=== PATIENT | male | born 1965 | race Caucasian/White ===

== ENCOUNTER 2016-02-10 06:55 | Day surgery (SDC) | payer BC ==
[~2016-02-10] VITALS: Ht 193 cm; Wt 103.2 kg
[2016-02-10 07:43] LABS: BASOPHILS 0.4 % (0.0-2.0); EOSINOPHILS 6.4 % (0-7); HEMATOCRIT 44.8 % (42.0-54.0); HEMOGLOBIN 15.1 g/dL (13.5-17.5); LYMPHOCYTES 28.7 % (15-50); MCH 29.7 pg (26.0-34.0); MCHC 33.7 g/dL (31.0-37.0); MCV 88.2 fL (80.0-100.0); MONOCYTES 13.3 % (2-11); NEUTROPHILS 51.2 % (40-80); PLATELET COUNT 181 10x3/uL (130-400); RBC 5.08 10x6/uL (4.20-6.10); RDW 12.5 % (11.5-14.5)
[2016-02-10 08:03] LABS: CALCIUM 8.6 mg/dL (8.5-10.1); CARBON DIOXIDE 26.1 mmol/L (21.0-32.0); CREATININE - SERUM 1.2 mg/dL (0.6-1.3); POTASSIUM - SERUM 4.1 mmol/L (3.5-5.1)
[2016-02-10 08:26] VITALS: BP 106/68; Ht 193 cm; Wt 103.2 kg
--- NOTE | 2016-02-10 10:45 | NUR ---
PT SITTING UP WITH HOB ELEVATED, TOLERATING FULL LIQUIDS. PAIN MEDICATION GIVEN WILL REASSESS. NO C/O N/V. WILL MONITOR.
--- NOTE | 2016-02-10 11:05 | NUR ---
1100- IV D/C'D, PT TOLERATED. CATHETER INTACT 1105- UP OOB TO VOID WITHOUT DIFFICULTY
--- NOTE | 2016-04-05 10:17 | HP ---
PATIENT: MIN HERMOSILLO MEDICAL RECORD: [id number] ACCOUNT: [id number] LOCATION:D.OPS : 65 ADMISSION DATE: 02/10/16 HISTORY AND PHYSICAL EXAMINATION CHIEF COMPLAINT: Desires colonoscopy. HISTORY OF PRESENT ILLNESS: The patient had a good prep yesterday. He has a perianal skin tag that I am going to remove rather than perform a hemorrhoidal banding. It sounds like that the perianal skin tag causes irritation. It has been enlarging. It is pedunculated. The risks, possible complications and alternatives to colonoscopy and removal of perianal skin tag were explained to the patient. He elects to proceed. He has had no rectal bleeding. No abdominal pain. No abdominal tenderness. HOME MEDICINES: None. ALLERGIES: No known drug allergies. SOCIAL HISTORY: Nonsmoker. REVIEW OF SYSTEMS: No coronary artery disease or hypertension. No CVA or seizures. No diabetes or thyroid problems. PAST MEDICAL AND SURGICAL HISTORY: Multiple knee operations. The patient states he has had 14 knee operations, also history of testicular cancer at age 20. PHYSICAL EXAMINATION: GENERAL: The patient does not appear acutely ill. He does not appear chronically ill. VITAL SIGNS: Reviewed. HEAD: External ears appear normal. EYES: Extraocular movements are intact. NECK: Trachea is midline. CHEST: No intercostal retractions. PULMONARY: Nonlabored and no stridor. ABDOMEN: Nontender. EXTREMITIES: No peripheral cyanosis. INTEGUMENT: No rash. IMPRESSION: 1. Desires screening colonoscopy. 2. Perianal skin tag. PLAN: Will be colonoscopy. Removal of perianal skin tag. TRANSINT:[id number] Voice Confirmation ID: [id number] DOCUMENT ID: [id number] HISTORY AND PHYSICAL [id number] JAIMEEMIN BRIONES LOBITO JOY, KASEY MCKINNEY at 1017 CC: CONNER FARIAS DO [id number] DICTATION DATE: 02/10/1618 MARKET MAKER: 02/10/16 0948 [facility] 02/10/16 [id number] [place] [address]
--- NOTE | 2016-04-05 10:17 | OP ---
PATIENT NAME: MIN HERMOSILLO MEDICAL RECORD: [id number] :65 LOCATION:D.OPS ADMISSION DATE: SURGEON: FACUNDO JOY MD DATE OF OPERATION: 02/10/2016 PREOPERATIVE DIAGNOSES: 1. Desires screening colonoscopy. 2. Perianal skin tag. POSTOPERATIVE DIAGNOSES: 1. Desires screening colonoscopy. 2. Perianal skin tag. 3. One colon polyp. 4. Normal prostate examination. PROCEDURES: 1. Total colonoscopy to cecum. 2. Hot biopsy forceps polypectomy times 1. 3. Excision of perianal skin tag. SURGEON: Facundo Joy MD MACHINE CLEANER: None. BLOOD LOSS: Minimal. ANESTHESIA: IV sedation. COMPLICATIONS: None. The indication for the anesthesia staff being present during the procedure includes anxiety regarding the procedure as well as the need for additional anesthesia when the perianal skin tag is removed. OPERATIVE COURSE: The patient was conveyed to the endoscopy suite electively on 02/10/2016. IV sedation was induced by the anesthesia staff. The patient was placed in the Funez position. A digital rectal examination was performed. A colonoscope was inserted through the anus. It was easily advanced to the cecum. The prep was adequate. Upon withdrawal, I irrigated and aspirated extensively. The pullback was greater than a 14-minute pullback. A combination of direct imaging as well as narrow band imaging were utilized. One polyp which was an 8 mm sessile polyp was removed utilizing the hot biopsy forceps polypectomy technique. It was removed in its entirety. A retroflexed view was obtained in the rectum. Upon retroflexion, there was what appeared to be an anal papilla. This was actually the perianal skin tag that had been prolapsing in and out through the anus. The endoscope was withdrawn under direct vision. The perianal skin tag was infiltrated with local anesthetic. I then cauterized the base of the skin tag, excising it. It was sent to pathology as a single specimen. The patient was then conveyed to the post endoscopy recovery area. He will be dismissed home on a narcotic analgesic. I will see him in the office in 2-3 weeks. OPERATIVE REPORT [id number] MIN HERMOSILLO TRANSINT:[id number] Voice Confirmation ID: [id number] DOCUMENT ID: [id number] FACUNDO JOY MD at 1017 CC: CONNER FARIAS DO [id number] DICTATION DATE: 02/10/16 1036 BOX OFFICE MANAGER: 02/10/16 1050 [facility] 02/10/16 [facility] [address] [place] [address]
== END 2016-02-10 11:15 | disposition home or self-care (01) ==
LOC: D.OPS 06:55
PROVIDERS: Anesthesiology
DX: Z12.11 Encounter for screening for malignant neoplasm of colon (principal); K63.5 Polyp of colon; K64.4 Residual hemorrhoidal skin tags